=== PATIENT | male | born 1975 | race Caucasian/White ===

== ENCOUNTER 2016-09-06 15:00 | Outpatient (RCR) | payer OTHER, BC | END 2016-09-21 09:45 | disposition still patient (30) | LOC: WSPT 15:00 | DX: Z47.89 Encounter for other orthopedic aftercare (principal); M75.102 Unspecified rotator cuff tear or rupture of left shoulder, not specified as traumatic | CPT/HCPCS: G8985-GP; G8986-GP ==

== ENCOUNTER → 2019-11-05 | Outpatient (CLI) | payer OTHER | LOC: MHCPAIN 14:14 | DX: M54.16 Radiculopathy, lumbar region (principal); M51.26 Other intervertebral disc displacement, lumbar region; G89.29 Other chronic pain | CPT/HCPCS: G0463 ==